=== PATIENT | male | born 1965 | race Caucasian/White ===

== ENCOUNTER → 2017-02-06 | Outpatient (CLI) | payer OTHER ==
--- NOTE | ~2017-02-06 | CT71 ---
[facility] A Service of [facility] RADIOLOGY TEXT RESULTS PATIENT: VAISHALI MARTINEZ [facility] [id number] : [birth year] UNIT #: [id number] AGE: [address]: Mike Alan MD SEX: M ORDER DR: [id number] [facility] [address] [place], [place] [address] [id number] O MR#: [id number] Acc #: [id number] NAME: VAISHALI MARTINEZ : 1965 SEX: M STUDY DATE/TIME: 02/06/2017 7:55 UNIT: [facility] ROOM: STUDY DESCRIPTION: CT Head Wo Contrast Attending Physician: Mike Alan M.D. Referring Physician: Mike Alan M.D. Ordering Physician: Mike Alan M.D. Primary Care Physician: Mike Alan M.D. MEDICAL IMAGING REPORT This report is preliminary unless electronic signature is present EXAM Head CT no contrast 02/06/2017 PROCEDURE Axial unenhanced head CT. This CT exam was performed with one or more of the following radiation dose reduction techniques: automatic control, adjustment of mA and/or kV according to patient size, and iterative reconstruction. COMPARISON Brain MRI 03/10/2013 HISTORY Several year history of intermittent headache with 5 year history of worsening dementia and gait unsteadiness worsening further over the past six month. FINDINGS There is no intracranial hemorrhage. There is no hydrocephalus or mass or extraaxial fluid collection. There are nonspecific white matter changes which may be related to small vessel disease but no acute abnormality is seen. The extracranial soft tissues are normal in the skull base and calvaria are normal. IMPRESSION Nonspecific white matter change, no acute abnormality. No substantial interval change since brain MRI of 03/10/2013. Dictated by... Moreno Mejia M.D. [facility] A Service of [facility] RADIOLOGY TEXT RESULTS PATIENT: VAISHALI MARTINEZ [facility] [id number] : 61 UNIT #: [id number] AGE: [address]: Mike Alan MD SEX: M ORDER DR: THIS IS AN ELECTRONICALLY VERIFIED REPORT Moreno Mejia M.D. at 02/07/2017 11:49 AM OLIVIA/[employer]ini TD: 02/06/2017 15:54 JOB #: [id number] MEDICAL IMAGING REPORT Page 1 of 1 COPY
[2017-02-07 06:51] LABS: POC - CREATININE 0.87 mg/dL (0.64-1.27); POC - GFR >60.0 mL/min (>60)
== END | disposition home or self-care (01) ==
LOC: CCAT 07:20
PROVIDERS: Family Medicine
DX: F03.90 Unspecified dementia, unspecified severity, without behavioral disturbance, psychotic disturbance, mood disturbance, and anxiety (principal); H53.9 Unspecified visual disturbance; R42 Dizziness and giddiness
CPT/HCPCS: 70450; 82565